=== PATIENT | male | born 1930 | race Caucasian/White ===

== ENCOUNTER 2019-05-10 19:47 | Inpatient (IN) | payer MEDICARE ==
[~2019-05-10] VITALS: Ht 182.9 cm; Wt 88.7 kg
[2019-05-10] MEDS ORDERED: Hydrochlorothia25 MG PO (20:01)
[2019-05-10] MEDS ORDERED: METO25 PO (20:01)
[2019-05-10] MEDS ORDERED: PANT40 PO (20:01)
[2019-05-10 20:55] LABS: Calcium, Ionized (POC) 1.17 mmol/L (1.10-1.46); Chloride (POC) 107 mmol/L (98-108); Creatinine (POC) 2.9 mg/dL (0.8-1.3); Glucose (ISTAT POC) 94 mg/dL (70-99); Hemoglobin (POC) 13.9 g/dL (13.5-17.5); Potassium (POC) 4.5 mmol/L (3.5-5.5); Sodium (POC) 139 mmol/L (135-148); Total CO2 (POC) 23 mmol/L (21-32)
[2019-05-10 21:00] LABS: Hematocrit 24.6 % (37.0-53.0); Hemoglobin 7.1 g/dL (13.5-17.5); Mean Corpuscular HGB 22.9 pg (26.0-34.0); Mean Corpuscular HGB Conc 28.9 g/dL (31.5-36.5); Mean Corpuscular Volume 79 fL (80-100); Mean Platelet Volume 11.9 fL (9.1-12.4); Platelet Count 127 K/mm3 (150-400); RDW Coefficient Variation 14.7 % (11.7-14.2); RDW Standard Deviation 42.7 fL (35.1-46.3); White Blood Cell Count 3.18 K/mm3 (4.00-11.30)
[2019-05-10 21:10] LABS: Bun/Creatinine Ratio 22.2 (12.0-20.0); Calcium, Blood 8.7 mg/dL (8.5-10.1); Creatinine, Blood 2.61 mg/dL (0.60-1.20); Potassium, Blood 4.5 mmol/L (3.5-5.5)
--- NOTE | 2019-05-11 01:18 | NUR ---
RECEIVED PT. FROM ED WITH BLOOD INFUSING. VSS T/O THE DURATION OF THE INFUSION. PT. A&O, NO APPARENT DISTRESS NOTED. DENIED ANY COMPLAINTS. BLOOD COMPLETED @0100. PT. TOLERATED WELL. CALL LIGHT WITHIN REACH AND SIDE RAILS UP X2. WILL CONT TO MONITOR.
--- NOTE | 2019-05-11 04:36 | NUR ---
SHIFT SUMMARY- PT. NEW ADMIT FROM ED. A&O, PLEASANT AND COOPERATIVE WITH CARE. ARRIVED TO FLOOR WITH 1 UNIT OF PRBC TRANSFUSING FROM THE ED. BLOOD WAS COMPLETED AT 0100, PT. TOLERATED WELL. VSS T/O THE TRANSFUSION AND T/O THE NIGHT. PT. ON PROTONIX DRIP PER EMAR. DENIED ANY PAIN OR DISCOMFORT T/O THE SHIFT. PT. RESTING COMFORTABLY IN BED, NO APPARENT DISTRESS NOTED. CALL LIGHT WITHIN REACH AND SIDE RAILS UP X2. WILL CONT TO MONITOR.
[2019-05-11 05:19] LABS: Hematocrit 24.5 % (37.0-53.0); Hemoglobin 7.3 g/dL (13.5-17.5); Mean Corpuscular HGB 23.5 pg (26.0-34.0); Mean Corpuscular HGB Conc 29.8 g/dL (31.5-36.5); Mean Corpuscular Volume 79 fL (80-100); Mean Platelet Volume 11.1 fL (9.1-12.4); Platelet Count 109 K/mm3 (150-400); RDW Coefficient Variation 14.6 % (11.7-14.2); RDW Standard Deviation 42.3 fL (35.1-46.3); White Blood Cell Count 2.96 K/mm3 (4.00-11.30)
--- NOTE | 2019-05-11 11:27 | NUR ---
05/11/19 1127 Socorro Donald PATIENT DETERMINED TO BE ASA APPROPRIATE FOR PROPOFOL SEDATION PRIOR TO START OF PROCEDURE BY DR. GALLEGOS. 3-LEAD EKG REVIEWED WITH PHYSICIAN PRIOR TO START OF PROCEDURE. PATIENT CONFIRMS NPO STATUS AND AGREES WITH SCHEDULED PROCEDURE. History, Chart, Medications and Allergies reviewed before start of procedure. MONITOR INTACT WITH CONTINUOUS PULSE OXIMETRY AND INTERMITTENT BP. O2 VIA N/C INTACT THROUGHOUT SEDATION/PROCEDURE, 3 L. Bite Block Placed IMMEDIATELY PRESEDATION.
[2019-05-11 12:12] LABS: Percent Saturation 34.9 % (20.0-50.0)
[2019-05-11 12:15] LABS: Albumin, Blood 3.1 g/dL (3.4-5.0); Bilirubin, Direct 0.2 mg/dL (0.0-0.3); Bilirubin, Indirect 0.5 mg/dL (0.1-0.7); Bilirubin, Total 0.7 mg/dL (0.1-1.0); Total Protein, Blood 6.1 g/dL (6.4-8.2)
--- NOTE | 2019-05-11 18:16 | NUR ---
SHIFT SUMMARY PT AXO, PLEASANT AND COOPERATIVE WITH CARE. VSS. PT HAD UPPER ENTEROSCOPY THIS SHIFT, SEE NOTE. PT ALSO RECEIVED ONE UNIT PRBC THIS SHIFT. NO H&H ORDERED POST INFUSION, DR KOVACS AWARE. PT DENIES ANY STOOL THIS SHIFT. GOLYTELY STARTED AT 1800 PER ORDERS. PT TOLERATING WELL SO FAR. BSC AT BEDSIDE. IV PATENT AND SALINE LOCKED.
[2019-05-12 05:06] LABS: Hematocrit 27.4 % (37.0-53.0); Mean Corpuscular HGB 22.7 pg (26.0-34.0); Mean Corpuscular HGB Conc 29.2 g/dL (31.5-36.5); Mean Corpuscular Volume 78 fL (80-100); Mean Platelet Volume 11.1 fL (9.1-12.4); Platelet Count 107 K/mm3 (150-400); RDW Coefficient Variation 15.1 % (11.7-14.2); RDW Standard Deviation 42.7 fL (35.1-46.3); Red Blood Cell Count 3.52 M/mm3 (4.30-5.90); White Blood Cell Count 5.06 K/mm3 (4.00-11.30)
--- NOTE | 2019-05-12 05:37 | NUR ---
MANAGER CREDIT COLLECTIONS SUMMARY Alert and oriented X4, patient was pleasant and cooperative with his prep, and was able to drink entire gallon of golytely by 2009 last night. there have not been any stools appearing to have blood in them overnight. Patient getting ready to drink AM bottle at 0600. Stool is liquid, but still has lots of small debris making it unclear. No complaints of pain or discomfort .
--- NOTE | 2019-05-12 09:31 | NUR ---
History, Chart, Medications and Allergies reviewed before start of procedure. Patient confirms NPO status and agrees with scheduled surgery. Lungs clear T/O to Auscultation.
--- NOTE | 2019-05-12 09:34 | NUR ---
LEFT PATIENT'S BOTTOM PARTIAL AND WATCH IN PATIENT'S ROOM FOR PROCEDURE. PATIENT HAS GLASSES AND TOP DENTURE PLATE, WHICH FITS TIGHTLY IN PLACE.
--- NOTE | 2019-05-12 10:05 | NUR ---
05/12/19 1005 Socorro Donald PATIENT DETERMINED TO BE ASA APPROPRIATE FOR PROPOFOL SEDATION PRIOR TO START OF PROCEDURE BY DR. GALLEGOS. 3-LEAD EKG REVIEWED WITH PHYSICIAN PRIOR TO START OF PROCEDURE. PATIENT CONFIRMS NPO STATUS AND AGREES WITH SCHEDULED PROCEDURE. History, Chart, Medications and Allergies reviewed before start of procedure. MONITOR INTACT WITH CONTINUOUS PULSE OXIMETRY AND INTERMITTENT BP. O2 VIA N/C INTACT THROUGHOUT SEDATION/PROCEDURE, 4L.
--- NOTE | 2019-05-12 11:15 | NUR ---
PATIENT ARRIVED BACK TO ROOM AFTER COLONOSCOPY. DR. GALLEGOS AT BEDSIDE. EKG ORDERED AND PATIENT PLACED ON LOW FAT DIET. DR. GALLEGOS SAID PATIENT WAS GOOD TO GO HOME IF HOSPITALIST AGREES.
[2019-05-12 12:45] LABS: Hematocrit 30.2 % (37.0-53.0); Hemoglobin 8.7 g/dL (13.5-17.5)
--- NOTE | 2019-05-12 19:29 | NUR ---
PATIENT D/C'D TO HOME WITH SON. D/C INSTRUCTIONS AND EDUCATION DISCUSSED WITH PATIENT AND COPY PROVIDED. PATIENT TO FOLLOW UP WITH PCP IN 3 DAYS. MESSAGE LEFT WITH BLASTING MACHINE OPERATOR TO MAKE THAT FOLLOW UP APPT. PATIENT DENIES ANY FURTHER QUESTIONS OR CONCERNS.
[2019-05-13 06:07] LABS: HBSAG SCREEN Negative (Negative); HEP A AB, IGM Negative (Negative); HEP B CORE AB, IGM Negative (Negative); HEP C VIRUS AB <0.1 (0.0-0.9)
== END 2019-05-12 19:23 | disposition home or self-care (01) | DRG 348 ==
LOC: ER 19:47 → MEDS 19:48
PROVIDERS: Emergency Medicine; Internal Medicine; Internal Medicine Gastroenterology; ADMIT Internal Medicine
PROC: 30233N1 Transfusion of Nonautologous Red Blood Cells into Peripheral Vein, Percutaneous Approach (ICD-10-PCS; 2019-05-10)
PROC: 0DB98ZX Excision of Duodenum, Via Natural or Artificial Opening Endoscopic, Diagnostic (ICD-10-PCS; 2019-05-11)
PROC: 0DB68ZX Excision of Stomach, Via Natural or Artificial Opening Endoscopic, Diagnostic (ICD-10-PCS; 2019-05-11)
PROC: 0DBA8ZX Excision of Jejunum, Via Natural or Artificial Opening Endoscopic, Diagnostic (ICD-10-PCS; 2019-05-11)
PROC: 0D738ZZ Dilation of Lower Esophagus, Via Natural or Artificial Opening Endoscopic (ICD-10-PCS; principal; 2019-05-11 11:15)
PROC: 0DBA8ZZ Excision of Jejunum, Via Natural or Artificial Opening Endoscopic (ICD-10-PCS; 2019-05-11 11:15)
PROC: 0D718ZZ Dilation of Upper Esophagus, Via Natural or Artificial Opening Endoscopic (ICD-10-PCS; 2019-05-11 11:15)
PROC: 0D728ZZ Dilation of Middle Esophagus, Via Natural or Artificial Opening Endoscopic (ICD-10-PCS; 2019-05-11 11:15)
PROC: 0D5K8ZZ Destruction of Ascending Colon, Via Natural or Artificial Opening Endoscopic (ICD-10-PCS; 2019-05-12)
DX: K55.21 Angiodysplasia of colon with hemorrhage (principal); N18.4 Chronic kidney disease, stage 4 (severe); D61.818 Other pancytopenia; D75.81 Myelofibrosis; I12.9 Hypertensive chronic kidney disease with stage 1 through stage 4 chronic kidney disease, or unspecified chronic kidney disease; Z85.46 Personal history of malignant neoplasm of prostate; K22.2 Esophageal obstruction; D13.39 Benign neoplasm of other parts of small intestine; D64.9 Anemia, unspecified
CPT/HCPCS: 36415; 36430; 80047; 80048; 80074; 80076; 82607; 82728; 82746; 83540; 83550; 85014; 85018; 85027; 86850; 86900; 86901; 86923; 88305; 88342; 93005; 93010; 96365; 96366; 96376; 99285-25; C9113; G0378; J2704; J7030; J7050; J7120; P9016